=== PATIENT | female | born 1970 | race Caucasian/White ===

== ENCOUNTER 2023-12-09 11:42 | Outpatient (CLI) | payer OTHER, SELFPAY ==
--- NOTE | ~2023-12-09 | US_ITS ---
EXAMINATION: US soft tissue groin LT DATE: 12/09/2023 12:02 INDICATION: Palpable abnormality at the left groin TECHNIQUE: Multiple grayscale and Doppler ultrasound images of the region of concern at the left groi n were obtained. COMPARISON: None FINDINGS/IMPRESSION: 5.4 x 3.8 x 4.8 cm hypoechoic mass with eccentric echogenic fatty hilum consistent with a pathologica lly enlarged lymph node concerning for lymphoma or metastatic disease. Recommend ultrasound-guided co re needle biopsy and consider contrast-enhanced CT of the chest, abdomen and pelvis for further evalu ation. Reviewed, dictated and finalized at location A.
== END 2023-12-09 11:43 ==
PROVIDERS: PCP Nurse Practitioner Obstetrics & Gynecology; Visit Provider Nurse Practitioner Obstetrics & Gynecology
DX: R19.09 Other intra-abdominal and pelvic swelling, mass and lump (principal)
CPT/HCPCS: 76882